=== PATIENT | male | born 1955 | race Caucasian/White ===

== ENCOUNTER → 2017-09-17 | Outpatient (CLI) | payer OTHER ==
--- NOTE | 2017-09-17 17:46 | DIAGNOSTIC IMAGING REPORT ---
ULTRASOUND RIGHT LOWER EXTREMITY VENOUS CLINICAL HISTORY: Right leg pain. COMPARISON STUDY: No priors. TECHNIQUE: Real-time, grayscale, and color Doppler sonography of the deep veins of the right lower extremity was performed from the inguinal crease to the calf. Compression and augmentation were utilized. FINDINGS: There is no sonographic evidence of deep venous thrombosis identified in the right lower extremity. The common femoral, superficial femoral, and popliteal veins are patent and normally compressible. The greater saphenous vein and the profunda femoris vein at the junction with the common femoral vein are clear. The visualized calf veins are patent. IMPRESSION: There is no sonographic evidence of deep venous thrombosis identified in the right lower extremity. Electronically signed by: Fox Montes M.D. 09/17/2017 5:44 PM Dictated Date/Time: 09/17/2017 5:44 PM
== END | disposition home or self-care (01) ==
LOC: C.ULTR 17:09
PROVIDERS: ATTEND Internal Medicine
DX: M79.661 Pain in right lower leg (principal); M79.89 Other specified soft tissue disorders

== ENCOUNTER → 2017-10-20 | Day surgery (SDC) | payer OTHER ==
[2017-10-02 11:20] VITALS: Ht 167.6 cm; Wt 75.0 kg
[~2017-10-20] VITALS: Ht 167.6 cm; Wt 75.0 kg
[~2017-10-20] MED LIST: LIDOCAINE HCL 2% 2 ML VIAL (20MG/ML) ONE; MULT-506 PO; PROPOFOL IV EMULSION 10 MG/ML 20 ML VIAL IV ONE; SODIUM CHLORIDE 0.9% 500ML 500 ML IV ONE
--- NOTE | 2017-10-20 10:43 | Endo History and Physical ---
History & Physical Date of Service: Oct 20, 2017. Chief Complaint: Screening Referring Physician: Dr. Villeda History of Present Illness 62 yo CM who presents for screening colonoscopy. Past Surgical History Hx Cardiac Surgery: No Hx Internal Defibrillator: No Hx Pacemaker: No Hx Abdominal Surgery: Yes (APPY) Hx of Implantable Prosthesis: No Hx Post-Op Nausea and Vomiting: No Hx Cancer Surgery: No Hx Thoracic Surgery: No Hx Orthopedic: Yes (RT ARM FX REPAIR, RT ARM FX HARDWARE REMOVAL) Hx Urinary Tract Surgery: No Family History None Social History Smoking Status: Never Smoker Hx Substance Use: No Hx Alcohol Use: Yes (QUIT 11-15-2002) Allergies Coded Allergies: Sulfa Drugs (Verified Allergy, Unknown, THROAT SWELLING - HAPPENED A CHILD, 10/02/17) Current Medications Reported Home Medications Medications Dose Route/Sig Max Daily Dose Days Date Category Multivitamin (Multivitamins) Tab 1 Tab PO QAM 10/02/17 Reported Vital Signs Weight (Kilograms): 75 Height (Feet): 5 Height (Inches): 6 Physical Exam General Appearance: WD/WN, no apparent distress Respiratory/Chest: Auscultation: breath sounds normal Cardiovascular: Heart Auscultation: RRR Abdomen: Bowel Sounds: normal Inspection & Palpation: soft, non-distended, no tenderness, guarding & rebound Assessment and Plan Assessment: 62 yo CM who presents for screening colonoscopy. Plan: Proceed with colonoscopy.
--- NOTE | 2017-10-20 12:14 | Discharge Instructions ---
Endoscopy Patient Instructions Date / Procedure(s) Performed Oct 20, 2017. Colonoscopy Allergy Information Coded Allergies: Sulfa Drugs (Verified Allergy, Unknown, THROAT SWELLING - HAPPENED A CHILD, 10/20/17) Discharge Date / Findings Oct 20, 2017. Colon polyp Diverticulosis Internal hemorrhoids Medication Instructions Stopped Medication(s): Multivitamin stopped 10-17-17 OK to resume all medications today as prescribed Reported Home Medications Medications Dose Route/Sig Max Daily Dose Days Date Category Multivitamin (Multivitamins) Tab 1 Tab PO QAM 10/02/17 Reported Provider Instructions Activity Restrictions - No exercising or heavy lifting for 24 hours. - Do not drink alcohol the day of the procedure. - Do not drive a car or operate machinery until the day after the procedure. - Do not make any important decisions or sign important papers in 24 hours after the procedure. Following Day: - Return to full activity which may include returning to work/school. Diet Start your diet with liquids and light foods (jello, soup, juice, toast). Then eat your usual diet if not nauseated. Treatment For Common After Affects For mild abdominal pain, bloating, or excessive gas: - Rest - Eat lightly - Lie on right side Follow-Up Information Follow-up with Dr. Villeda as scheduled Anesthesia Information What You Should Know You have had a procedure that required some medicine to reduce anxiety and discomfort. This treatment is called moderate sedation. After receiving the treatment, you may be sleepy, but you will be able to breathe on your own. The effects of the treatment may last for several hours. Follow these instructions along with Activity/Diet recommendations noted above: * Do NOT do anything where dizziness or clumsiness would be dangerous. * Rest quietly at home today, then you can be up and about tomorrow. * Have a responsible person stay with you the rest of today. * You may have had an I.V. today. If so, you may take the dressing off later today. Recommendations Call your doctor if: * Trouble breathing * Continuous vomiting for more than 24 hours * Temperature above 101 degrees * Severe abdominal pain or bloating * Pain not relieved by pain medicine ordered * There is increased drainage or redness from any incision * A large amount of rectal bleeding greater than 2-3 tablespoons. (If you had a polyp/s removed or have hemorrhoids, a small amount of blood - from the rectum is to be expected.) * You have any unanswered questions or concerns. IN THE EVENT OF A SERIOUS EMERGENCY, GO TO THE NEAREST EMERGENCY ROOM Your discharge instructions were prepared by provider Mario Hernandez. Patient Instructions Signature Page Musa Jade Patient (or Guardian) Signature/Date: I have read and understand the instructions given to me by my caregivers. Caregiver/RN/Doctor Signature/Date: The above-named patient and/or guardian has received patient instructions on this date. + Original Patient Signature Page (only) stays with chart. Please make copy for patient.
--- NOTE | 2017-10-20 12:26 | GI REPORT ---
Procedure Date: 10/20/2017 11:47 AM Procedure: Colonoscopy Indications: Screening for colorectal malignant neoplasm Medicines: Monitored Anesthesia Care Complications: No immediate complications. Estimated Blood Loss: Estimated blood loss: none. Procedure: Pre-Anesthesia Assessment: - Prior to the procedure, a History and Physical was performed, and patient medications and allergies were reviewed. The patient's tolerance of previous anesthesia was also reviewed. The risks and benefits of the procedure and the sedation options and risks were discussed with the patient. All questions were answered, and informed consent was obtained. Prior Anticoagulants: The patient has taken no previous anticoagulant or antiplatelet agents. ASA Grade Assessment: II - A patient with mild systemic disease. After reviewing the risks and benefits, the patient was deemed in satisfactory condition to undergo the procedure. After I obtained informed consent, the scope was passed under direct vision. Throughout the procedure, the patient's blood pressure, pulse, and oxygen saturations were monitored continuously. The scope was introduced through the anus and advanced to the terminal ileum. The colonoscopy was performed without difficulty. The patient tolerated the procedure well. The quality of the bowel preparation was good. The terminal ileum, ileocecal valve, appendiceal orifice, and rectum were photographed. Findings: The perianal and digital rectal examinations were normal. A 18 mm polyp was found in the cecum. The polyp was flat. The polyp was removed with a saline injection-lift technique using a hot snare. 18 ml of saline was injected to raise the polyp. Polyp resection was incomplete. The resected tissue was retrieved. To prevent bleeding after the polypectomy, two hemostatic clips were successfully placed (MR conditional). There was no bleeding at the end of the procedure. Multiple small-mouthed diverticula were found in the sigmoid colon. Non-bleeding internal hemorrhoids were found during retroflexion. The hemorrhoids were small. Impression: - One 18 mm polyp in the cecum, removed using injection-lift and a hot snare. Incomplete resection. Resected tissue retrieved. Clips (MR conditional) were placed. - Diverticulosis in the sigmoid colon. - Non-bleeding internal hemorrhoids. Recommendation: - Resume previous diet. - Continue present medications. - Repeat colonoscopy in 6 months for surveillance after piecemeal polypectomy. - Return to primary care physician as previously scheduled. Mario Hernandez DO 10/20/2017 12:23:12 PM This report has been signed electronically. Note Initiated On: 10/20/2017 11:47 AM I attest to the content of the Intraoperative Record and orders documented therein, exceptions below
[2017-10-20 12:46] VITALS: BP 128/80; PULSE 71; O2SAT 100
--- NOTE | 2017-10-20 14:03 | Anesthesiology Progress Note ---
Anesthesia Post Op Note Date & Time Oct 20, 2017 at 14:03 Vital Signs Pain Intensity: 0 Vital Signs Past 12 Hours Date Time Temp Pulse Resp B/P (MAP) Pulse Ox O2 Delivery O2 Flow Rate FiO2 10/20/17 12:46 71 16 128/80 (96) 100 Room Air 10/20/17 12:31 72 16 130/83 (99) 99 Room Air 10/20/17 12:16 85 16 115/72 (86) 99 Room Air 10/20/17 10:54 36.6 80 18 128/82 (97) 95 Room Air Notes Mental Status: alert / awake / arousable, participated in evaluation Pt Amnestic to Procedure: Yes Nausea / Vomiting: adequately controlled Pain: adequately controlled Airway Patency, RR, SpO2: stable & adequate BP & HR: stable & adequate Hydration State: stable & adequate Anesthetic Complications: no major complications apparent
== END | disposition home or self-care (01) ==
LOC: C.GI 10:22
PROVIDERS: ATTEND Internal Medicine
DX: Z12.11 Encounter for screening for malignant neoplasm of colon (principal); D12.0 Benign neoplasm of cecum; K57.30 Diverticulosis of large intestine without perforation or abscess without bleeding; K64.8 Other hemorrhoids; Z90.89 Acquired absence of other organs; Z82.2 Family history of deafness and hearing loss; Z86.69 Personal history of other diseases of the nervous system and sense organs